=== PATIENT | female | born 1935 | race Two or more races ===

== ENCOUNTER 2016-12-05 19:06 | Emergency (ER) | payer MEDICARE, MEDICAID ==
[~2016-12-05] VITALS: Ht 144.8 cm; Wt 61.2 kg
[2016-12-05] MEDS: HYDROCODONE/APAP 10-325 MG TABLET PO ONE (19:32)
[2016-12-05] MEDS: CLINDAMYCIN HCL 150 MG CAPSULE PO ONE (19:32)
--- NOTE | 2016-12-05 19:33 | NUR ---
Pt to room with family c/o left upper tooth pain since yesterday. Pt seen by Dr. Gardiner. Pt medicated for discomfort and given first dose of ABT. Pt stable for discharge per MD. Pt given ACI. Both pt and family verbalized understanding of dc instructions. Pt ambulated out of er with steady gait and ride home
[2016-12-05 19:35] VITALS: BP 129/79
[2016-12-05] MEDS ORDERED: CLINDAMYCIN HCL 150 MG CAPSULE ONE (19:43)
[2016-12-05] MEDS ORDERED: HYDROCODONE/APAP 10-325 MG TABLET ONE (19:44)
== END 2016-12-05 19:36 | disposition home or self-care (01) ==
LOC: ER 19:06
DX: K08.89 Other specified disorders of teeth and supporting structures (principal); Z88.0 Allergy status to penicillin; I10 Essential (primary) hypertension; E11.9 Type 2 diabetes mellitus without complications; Z95.1 Presence of aortocoronary bypass graft; Z88.6 Allergy status to analgesic agent
CPT/HCPCS: A4663